=== PATIENT | male | born 1950 | race Two or more races ===

== ENCOUNTER 2019-04-27 15:48 | Emergency (ER) | payer MEDICARE, BC ==
[~2019-04-27] VITALS: Ht 180.3 cm; Wt 74.8 kg
--- NOTE | 2019-04-27 16:20 | NUR ---
PT AAOX4. C/O CHRONIC LOWER BACK PAIN THAT IS WORSENING IN THE PAST WEEK. PT STATES HE TOOK VALIUM WHICH HELPED. OTHER THAN THAT OTHER PAIN MEDS DID NOT HELP. MD AT BEDSIDE.
[2019-04-27] MEDS ORDERED: ONDANSETRON 4 MG TAB.RAPDIS PO ONE (16:30)
[2019-04-27] MEDS ORDERED: HYDROMORPHONE 1 MG/1 ML DISP.SYRIN IM ONE (16:30)
--- NOTE | 2019-04-27 17:42 | NUR ---
Patient discharged to home in stable condition. Written and verbal after care instructions given. Patient verbalizes understanding of instruction and RX. PT ambulatory with a steady gait.
[2019-04-27 17:43] VITALS: BP 116/76
== END 2019-04-27 17:43 | disposition home or self-care (01) ==
LOC: ER 16:00
DX: M54.40 Lumbago with sciatica, unspecified side (principal); G89.29 Other chronic pain
CPT/HCPCS: 96372; 99283; J1170; Q0162

== ENCOUNTER 2019-04-30 06:14 | Observation (INO) | payer MEDICARE, BC ==
[~2019-04-30] VITALS: Ht 195.6 cm; Wt 104.3 kg
[2019-04-30] VITALS (8 sets, daily range): BP systolic 122–136; BP diastolic 74–81
[~2019-04-30 06:14] MED LIST: HYDROMORPHONE 1 MG/1 ML DISP.SYRIN ONE; ONDANSETRON 4 MG TAB.RAPDIS ONE
[2019-04-30] MEDS ORDERED: LIDOCAINE HCL/MPF 1% 30 ML VIAL IJ ONE (06:38)
[2019-04-30] MEDS ORDERED: ANESTHESIA TRAY IN PYXIS 1 EA TRAY MC ONE (06:38)
[2019-04-30] MEDS ORDERED: METHYLENE BLUE 10 ML VIAL ONE (06:38)
[2019-04-30] MEDS ORDERED: HEMOSTATIC MATRIX 8 ML 1 EACH PAD MC ONE (06:38)
[2019-04-30] MEDS ORDERED: CEFAZOLIN 1 GM ONE (06:39)
[2019-04-30] MEDS ORDERED: BUPIVACAINE MPF 0.5% W/EPI INJ 30 ML VIAL ONE (06:39)
[2019-04-30] MEDS ORDERED: methylPREDNISolone ACETATE 80 MG/ML VIAL ONE (06:39)
[2019-04-30] MEDS ORDERED: BACITRACIN ZINC OINT (15 GM) 15 GM TUBE TP ONE (07:03)
[2019-04-30] MEDS ORDERED: MIDAZOLAM HCL 2 MG/2ML VIAL ONE (07:23)
[2019-04-30] MEDS ORDERED: ROCURONIUM BROMIDE 50 MG/5 ML ONE ×2 (07:23→08:11)
[2019-04-30] MEDS ORDERED: HYDROMORPHONE INJ 2 MG/ML DISP.SYRIN ONE (07:23)
[2019-04-30] MEDS ORDERED: HYDROMORPHONE 1 MG/1 ML DISP.SYRIN ONE (11:09)
[2019-04-30] MEDS ORDERED: HYDROMORPHONE 1 MG/1 ML DISP.SYRIN IV PRN (12:00)
[2019-04-30] MEDS ORDERED: HYDROCODONE/APAP 5/325MG 1 EACH TABLET PO PRN (12:00)
--- NOTE | 2019-04-30 12:15 | NUR ---
MS/RN - Admission (Med-surg observation) Received patient from PACU s/p Microdiscectomy under the care of Dr. Moss. Patient is alert and oriented x 4, denies pain, stable on room air, afebrile. Patient oriented to room, all belongings accounted for. Saline lock on the right hand is patent, intact, flushing well. Skin assessment done, no skin breakdown except for lower back incision with Mepilex dressing C/D/I, refused photo to be taken. Fall precautions initiated. Discussed plan of care with patient and at bedside and in agreement. Post-op orders noted and carried out. Per Dr. Moss, okay to discharge home today if stable and able to void.
--- NOTE | 2019-04-30 14:00 | NUR ---
MS/RN - Notes Patient able to void without difficulty using the urinal, 200 ml output noted. Continue post-op vital signs monitoring.
--- NOTE | 2019-04-30 19:00 | NUR ---
MS/RN - Discharge Patient is alert and oriented throughout the shift, discharged home in stable condition, remain afebrile, denies pain, not in any form of distress, ambulatory with assist. Reviewed discharge instructions with patient and both verbalized full understanding of all teachings including medications and follow-up care with Dr. Moss as scheduled. Patient was advised to seek immediate medical attention if he have fever, pain that gets worse or does not get better with medicine, legs or feet become swollen, redness, pus, swelling or pain coming from your incision, chest pain, shortness of breath, palpitations, abdominal pain/distention, intractable nausea and vomiting, have difficulty controlling urination or bowel movements, weakness, loss of consciousness, neurological deficit, or any other emergent concerns. All belongings with patient and he deny any missing items. Patient refused photos to be taken of skin, no breakdown, lower back dressing is clean and dry. Saline lock removed on the right hand with catheter tip intact, no redness, no swelling noted at the site. Discharge paperwork signed and copies were given per protocol. Written prescription for Oxycodone given to the patient. Accompanied to the lobby via wheelchair. Taxi voucher was provided.
== END 2019-04-30 19:00 | disposition home or self-care (01) ==
LOC: DS 06:14 → INTOOBSV 10:40 → MED 10:40
PROVIDERS: ADMIT Specialist; ATTEND Specialist
DX: M51.16 Intervertebral disc disorders with radiculopathy, lumbar region (principal); M48.061 Spinal stenosis, lumbar region without neurogenic claudication; G96.12 Meningeal adhesions (cerebral) (spinal); Z91.040 Latex allergy status
CPT/HCPCS: 63030; 71045; 72100; 87081; 88304; 88311; A6209 ×2; A6402; G0378 ×8; J0690 ×2; J1040; J1100; J1170 ×2; J2250; J2405; J2704; J2710; J3490 ×4; Q9968; Q0162